=== PATIENT | male | born 1950 | race Caucasian/White ===

== ENCOUNTER 2022-01-24 23:21 | Emergency (ER) | payer OTHER ==
[~2022-01-24] VITALS: Ht 177.8 cm; Wt 70.5 kg
[2022-01-25 01:00] LABS: Basophils # (auto) 0.1 10 ^3/uL (0-0.2); Eosinophils # (auto) 0.1 10 ^3/uL (0-0.8); Eosinophils % (auto) 0.8 % (0.0-7.0); Hematocrit 50.6 % (41.0-53.0); Hemoglobin 16.6 g/dL (13.5-17.5); Lymphocytes # (auto) 3.2 10 ^3/uL (0.4-5.4); Lymphocytes % (auto) 26.2 % (10.0-50.0); Mean Corpuscular Hemoglobin 29.2 pg (28.0-32.0); Mean Corpuscular Hgb Conc. 32.8 g/dL (32.0-36.0); Mean Corpuscular Volume 88.8 fL (80.0-100.0); Monocytes % (auto) 8.4 % (0.0-12.0); Neutrophils # (auto) 7.7 10 ^3/uL (1.6-8.6); Neutrophils % (auto) 63.6 % (37.0-80.0); Nucleated Red Blood Cells % 0.1 %; Red Blood Cells 5.69 10^6/uL (4.5-5.90); Red Cell Distribution Width 13.9 % (11.8-14.3); White Blood Cell 12.1 10^3/uL (4.4-10.8)
[2022-01-25 01:23] LABS: Albumin 4.1 g/dL (3.4-5.0); BUN/Creatinine Ratio 23.8; Calcium 10.3 mg/dL (8.5-10.1)
[2022-01-25 01:42] LABS: Bilirubin, Total 1.5 mg/dL (0.2-1.0); Total Protein 8.6 g/dL (6.4-8.2)
[2022-01-25] MEDS ORDERED: PRED20TA2 PO (05:12)
[2022-01-25] MEDS ORDERED: AZIT250T9 PO (05:14)
[2022-01-25] MEDS ORDERED: DexAMETHasone SOD PHOS 10MG/1ML VIAL INJ IM ONE (05:15)
[2022-01-25 05:50] VITALS: BP 159/112
== END 2022-01-25 17:08 | disposition home or self-care (01) ==
LOC: ER 23:21
DX: R07.89 Other chest pain (principal); Z86.73 Personal history of transient ischemic attack (TIA), and cerebral infarction without residual deficits
CPT/HCPCS: 36415; 70450; 71045; 80053; 84484; 85025; 96372; 99285; J1100; 93005

== ENCOUNTER 2023-06-06 18:08 | Emergency (ER) | payer OTHER ==
[~2023-06-06] VITALS: Ht 177.8 cm; Wt 82.0 kg
[~2023-06-06 18:08] MED LIST: AZIT-43 PO; PRED20TA2 PO
[2023-06-06] MEDS: HYDROcodone-ACET 5/325MG TAB PO ONE (22:14)
[2023-06-06] MEDS ORDERED: CYCL-837 PO (22:33)
[2023-06-07 02:38] VITALS: PULSE 90; RESP 18; O2SAT 93
[2023-06-07] MEDS: HYDROcodone-ACET 5/325MG TAB PO ONE ×2 (02:45→13:34)
[2023-06-07 10:29] VITALS: PULSE 90; RESP 18; O2SAT 93
[2023-06-07 10:49] VITALS: PULSE 78; RESP 14; O2SAT 98
[2023-06-07] MEDS ORDERED: ATOR-47 PO (15:26)
[2023-06-07] MEDS ORDERED: PANT1INJ3 PO (15:26)
[2023-06-07] MEDS ORDERED: DOCU-94 PO (15:26)
[2023-06-07] MEDS ORDERED: DESM0.1T13 PO (15:26)
[2023-06-07] MEDS ORDERED: FURO20TA3 PO (15:26)
[2023-06-07] MEDS ORDERED: DONE1TAB88 PO (15:26)
[2023-06-07] MEDS ORDERED: ONDA-155 PO (15:26)
[2023-06-07] MEDS ORDERED: AMLO1TAB22 PO (15:26)
[2023-06-07 19:30] VITALS: PULSE 84; RESP 16; O2SAT 98
[2023-06-07] MEDS: HYDROcodone-ACET 10/325MG TAB PO ONE (21:38)
[2023-06-08] MEDS: IBUPROFEN 600 MG TAB PO ONE ×2 (07:30→21:37)
[2023-06-08 07:55] VITALS: PULSE 82; RESP 16; O2SAT 99
[2023-06-08 19:50] VITALS: RESP 15
[2023-06-09 07:30] VITALS: PULSE 70; RESP 12; O2SAT 93
[2023-06-09 08:30] VITALS: TEMP 98.7
[2023-06-09 10:36] LABS: Basophils # (auto) 0 10 ^3/uL (0-0.2); Basophils % (auto) 0.2 % (0.0-2.0); Eosinophils # (auto) 0.2 10 ^3/uL (0-0.8); Hematocrit 39.7 % (41.0-53.0); Lymphocytes # (auto) 2.3 10 ^3/uL (0.4-5.4); Lymphocytes % (auto) 37.3 % (10.0-50.0); Mean Corpuscular Hgb Conc. 32.7 g/dL (32.0-36.0); Mean Corpuscular Volume 85.6 fL (80.0-100.0); Monocytes # (auto) 0.6 10 ^3/uL (0-1.3); Neutrophils # (auto) 3.1 10 ^3/uL (1.6-8.6); Neutrophils % (auto) 50.5 % (37.0-80.0); Nucleated Red Blood Cells % 0.1 %; Red Blood Cells 4.64 10^6/uL (4.5-5.90); Red Cell Distribution Width 14.2 % (11.8-14.3); White Blood Cell 6.1 10^3/uL (4.4-10.8)
[2023-06-09 10:50] LABS: Alanine Aminotransferase 20 U/L (7-40); Albumin 3.8 g/dL (3.2-4.8); Alkaline Phosphatase 140 U/L (46-116); Anion Gap 7 (5-15); Aspartate Aminotransferase 31 U/L (13-40); BUN/Creatinine Ratio 14.1 (10.0-20.0); Blood Urea Nitrogen 9 mg/dL (9-23); Calcium 8.9 mg/dL (8.5-10.1); Carbon Dioxide 30 mmol/L (20-30); Chloride 102 mmol/L (98-107); Glucose 77 mg/dL (74-106); Potassium 3.9 mmol/L (3.5-5.1); Sodium 139 mmol/L (136-145)
[2023-06-09 10:51] LABS: Total Protein 6.4 g/dL (5.7-8.2)
[2023-06-09] MEDS: SODIUM CHLORIDE 0.9% 500 ML IVB ONE (10:57)
[2023-06-09] MEDS: SODIUM CHLORIDE 0.9% 1,000 ML IV ONE (10:57)
[2023-06-09] MEDS: MORPHINE SULFATE 4 MG/ML SYR/VIAL ONE (11:06)
[2023-06-09] MEDS: ONDANSETRON HCL 4 MG/2 ML VIAL ONE (11:06)
[2023-06-09] MEDS: MORPHINE SULFATE 4 MG/ML SYR/VIAL IV ONE (11:11)
[2023-06-09] MEDS: ONDANSETRON HCL 4 MG/2 ML VIAL IV ONE (11:12)
[2023-06-09 11:13] LABS: Lipase 29 U/L (12-53); Magnesium 1.9 mg/dL (1.6-2.6)
[2023-06-09] MEDS: IOHEXOL 300 MG/ML 100ML BOTTLE IJ ONE (11:43)
[2023-06-09 14:00] VITALS: BP 137/85; PULSE 68; RESP 12; O2SAT 93
== END 2023-06-09 15:24 | disposition home or self-care (01) ==
LOC: EDUNIT# 18:08 → ER 18:08 → EDBD 18:08 → ER 06-09 15:24
DX: S62.330A Displaced fracture of neck of second metacarpal bone, right hand, initial encounter for closed fracture (principal); S22.42XA Multiple fractures of ribs, left side, initial encounter for closed fracture; Z79.01 Long term (current) use of anticoagulants; Z79.899 Other long term (current) drug therapy; Z86.73 Personal history of transient ischemic attack (TIA), and cerebral infarction without residual deficits; W18.09XA Striking against other object with subsequent fall, initial encounter; Y93.89 Activity, other specified; Y92.89 Other specified places as the place of occurrence of the external cause; Y99.8 Other external cause status
CPT/HCPCS: 29125; 36415; 71101; 73130; 74176; 80053; 83690; 83735; 84484; 85025; 93005; 96361; 96374; 96375; 99285; J2270; J2405; J7030; J7040